=== PATIENT | female | born 1935 | race African-American/Black ===

== ENCOUNTER → 2017-08-05 | Outpatient (CLI) | payer OTHER | END | disposition home or self-care (01) | LOC: KCIC DEXA 13:05 | DX: Z13.820 Encounter for screening for osteoporosis (principal); M85.88 Other specified disorders of bone density and structure, other site; Z78.0 Asymptomatic menopausal state | CPT/HCPCS: 77080 ==

== ENCOUNTER → 2020-10-24 | Outpatient (CLI) | payer MEDICARE, OTHER ==
[2016-03-24 11:03] VITALS: BP 120/69
[~2020-10-24] MED LIST: ATOR10TA60 PO; CHOL-5 PO; CYAN25008 PO; LATA2.5D3 EACHEYE; METF10007 PO; MULT-245 PO
== END ==
LOC: LAB 09:27
PROVIDERS: ATTEND Orthopaedic Surgery
DX: Z01.812 Encounter for preprocedural laboratory examination (principal); Z20.822 Contact with and (suspected) exposure to COVID-19
CPT/HCPCS: U0003; U0005

== ENCOUNTER 2020-10-26 09:48 | Day surgery (SDC) | payer MEDICARE ==
[~2020-10-26] VITALS: Ht 152.4 cm; Wt 77.1 kg
[2020-10-26] MEDS ORDERED: INSULIN LISPRO 100 UNIT/ML 3ML VIAL for OP,RR ONLY. SQ PRN (10:30)
[2020-10-26] MEDS ORDERED: IV RINGERS,LACTATED 1000ML 1,000 ML IV SCH (10:45)
[2020-10-26] MEDS ORDERED: PROPOFOL 50 ML IV ONE (12:10)
[2020-10-26] MEDS ORDERED: PROPOFOL 10 MG/ML (20ML) VIAL. IV ONE (12:11)
[2020-10-26] MEDS ORDERED: EPINEPHrine VIAL 30 MG/30 ML VIAL ONE (12:14)
[2020-10-26] MEDS ORDERED: BUPIVACAINE-EPI 0.25% 30 ML VIAL KIT. ONE (12:14)
[2020-10-26] MEDS ORDERED: KETOROLAC 30 MG/ML VIAL. ONE (12:22)
--- NOTE | 2020-10-26 13:13 | PDOC4 ---
Operative Note Operative Note DATE: October 26, 2020 PREOPERATIVE DIAGNOSIS Carpal tunnel syndrome, left upper limb G56.02: POSTOPERATIVE DIAGNOSIS: Carpal tunnel syndrome, left upper limb G56.02 PROCEDURES PERFORMED: left wrist, open carpal tunnel release (neuroplasty of the median nerve at the carpal tunnel, CPT 68013 SURGEON: Erick Atkins MD [employer]: ANESTHESIA: Regional intravenous block ([place] Block) ESTIMATED BLOOD LOSS: 10 mL SPECIMENS: none DRAINS: none COMPLICATIONS: none TOURNIQUET: 28 minutes at 250 mm Hg FINDINGS: This patient had an extensive amount of what appears to be synovial fluid (yellow, transparent, slightly more viscous than water) within the carpal canal as if there is a ganglion or other fluid collection although there was no ganglionic capsule. I have done carpal tunnel surgery hundreds of times (and over many years), and have never seen this finding before. I explored the carpal canal to see if there was any apparent reason for the fluid collection but do not see anything else abnormal. It is difficult to visualize the joint capsule without risk of injury to the median nerve so I did not do any deeper exploration of the wrist capsule. INDICATIONS FOR PROCEDURE: The patient is a 84-year-old with left hand pain and numbness. EMG confirms carpal tunnel syndrome. The patient and I discussed carpal tunnel release surgery along with the potential risks of infection, neurovascular injury, bleeding, persistent or recurrent carpal tunnel syndrome, wound healing problems, or other surgical or anesthetic complications. All of the patients questions about surgery were answered and they desired to proceed. Written consent was obtained. DESCRIPTION OF OPERATION: The patient was identified in the preoperative holding area. The correct left hand was marked by me. The patient was taken to the operating room and positioned supine on the operating table with the left arm extended on an arm board. A tourniquet was placed on the upper left arm. Preoperative antibiotics were given intravenously. A timeout procedure was performed. A [place] block was performed by the anesthesia team, and the tourniquet was inflated as part of the anesthetic.The limb was prepared in sterile fashion with ChloraPrep solution and sterile drapes were applied. Forceps were used to pinch the skin at the wrist, to check the adequacy of the block.A curvilinear incision was made with a 15 blade scalpel, 2mm ulnar to the thenar crease, using landmarks including the thenar crease, Kaplans cardinal line, the ulnar border of the fingernail of the ring finger, the wrist flexion crease, and the palmaris longus tendon. Care was made not to extend this incision beyond Kaplans cardinal line, so as to avoid arterial injury. Loupe magnification (3.5x extended field) was used throughout to prevent neurovascular injury. Sharp dissection was used through the subcutaneous tissues, and the palmaris longus tendon was retracted toward the thumb. Bipolar electrocautery was used for hemostasis. The transverse carpal ligament was identified and was divided under direct vision proximally and distally. Scissor dissection was used proximal to the wrist flexion crease to complete the proximal release of the transverse carpal ligament with the skin elevated away from the dissection. Digital palpation was used proximally and distally, ensuri ng a complete release. A gentle scissor neuroplasty was now performed along the ulnar aspect of the median nerve, releasing dense adhesions and dense synovium. The left median nerve was thinned. This patient had an extensive amount of what appears to be synovial fluid (yellow, transparent slightly more viscous than water) within the carpal canal as if there is a ganglion or other fluid collection although there was no ganglionic capsule. I have done carpal tunnel surgery hundreds of times (and over many years), and have never seen this finding before. I explored the carpal canal to see if there was any apparent reason for the fluid collection but do not see anything else abnormal. It is difficult to visualize the joint capsule without risk of injury to the median nerve so I did not do any deeper exploration of the wrist capsule. Care was made not to injure the motor branch on the radial aspect. Copious saline irrigation was used. Bipolar electrocautery was used for hemostasis. The skin edges were injected with 0.25% bupivacaine with epinephrine. The skin edges were reapproximated with 3-0 Prolene horizontal mattress sutures. Needle and sponge counts were correct. Xeroform and a sterile dressing were applied. The tourniquet was released. There were no apparent complications. The patient returned to the recovery room in stable condition. ERICK ATKINS MD Oct 26, 2020 13:13
[2020-10-26 13:56] VITALS: BP 139/78
== END 2020-10-26 14:31 | disposition home or self-care (01) ==
LOC: SURG 09:48
PROVIDERS: ATTEND Orthopaedic Surgery
DX: G56.02 Carpal tunnel syndrome, left upper limb (principal); E78.00 Pure hypercholesterolemia, unspecified; E66.9 Obesity, unspecified; E11.9 Type 2 diabetes mellitus without complications; M19.90 Unspecified osteoarthritis, unspecified site; Z90.710 Acquired absence of both cervix and uterus; Z98.890 Other specified postprocedural states; Z79.899 Other long term (current) drug therapy; Z87.891 Personal history of nicotine dependence
CPT/HCPCS: 64721; 82962; A4930; A6402; J0171; J0690; J1885; J2704; A4657; A6452

== ENCOUNTER → 2021-02-18 | Outpatient (CLI) | payer MEDICARE ==
--- NOTE | 2021-02-18 16:44 | RAD ---
INDICATION: 85 years of age asymptomatic female patient presents for screening mammography. TECHNIQUE: Full field craniocaudal and mediolateral oblique images of both breasts were obtained usi ng digital technique with tomosynthesis and also analyzed with computer-aided detection software. COMPARISON: Prior mammographic imaging 07/21/2013, 07/15/2012. BREAST COMPOSITION: Category B: There are scattered fibroglandular densities. FINDINGS: Benign calcifications are present. The parenchymal pattern appears stable. No suspicious masses, microcalcifications or architectural distortion is present to suggest malignanc y in either breast. The visualized axillae are unremarkable. IMPRESSION: No mammographic evidence of malignancy. RECOMMENDATION: Annual screening mammography is recommended, unless clinically indicated sooner based on symptoms or change in physical exam. BIRADS 2: BENIGN This study was interpreted with the benefit of Computerized Aided Detection (CAD). Patient information is entered into the reminder system with a target due date for the next screening mammogram. Mammography is the most sensitive method for finding small breast cancers, but it does not detect the m all and is not a substitute for careful clinical examination. A negative mammogram does not negate a clinically suspicious finding and should not result in delay in biopsying a clinically suspicious a bnormality. "Our facility is accredited by the [employer] Mammography Program." Electronically signed by: Dami Santacruz MD (02/18/2021 4:41 PM) [email or web address]
== END ==
LOC: MAMMO 08:00
PROVIDERS: ATTEND Internal Medicine
DX: Z12.31 Encounter for screening mammogram for malignant neoplasm of breast (principal)
CPT/HCPCS: 77063; 77067